=== PATIENT | male | born 1980 | race Caucasian/White ===

== ENCOUNTER 2017-07-14 17:30 | Emergency (ER) | payer OTHER ==
[~2017-07-14] VITALS: Ht 182.9 cm; Wt 120.5 kg
[~2017-07-14 17:30] MED LIST: AMOXICILLIN 8751 TAB PO; BACTRIM DS 8001 TAB PO; CEPHALEXIN500 M1 PO; FORT1000TA PO; GLUCOTROL 5M5 MG/TAB; NO HOME MEDICATIONS; NORCO 325 MG-51 TAB PO; NORCO 325 MG-7.1 TAB PO; SOMA250 MG; XANAX 0.5MG0.5 MG; XANAX0.5 MG PO
[2017-07-14] MEDS ORDERED: FLEXERIL 1010 MG/TAB PO (17:48)
[2017-07-14] MEDS ORDERED: MOBIC15 MG PO (17:48)
[2017-07-14] MEDS ORDERED: AMBIEN 10MG10 MG PO (17:48)
[2017-07-14 18:08] LABS: C-REACTIVE PROTEIN 0.7 mg/dL (0.0-0.9)
[2017-07-14 18:19] LABS: TROPONIN-I < 0.012 ng/mL (0.000-0.034)
[2017-07-14 18:29] LABS: HEMATOCRIT 47.4 % (42.0-52.0); HEMOGLOBIN 16.2 g/dl (13.5-18.0); MEAN CELL VOLUME 89 fl (80.0-100.0); MEAN CORPUSCULAR HEMOGLOBIN 30 pg (27.0-31.0); MEAN CORPUSCULAR HGB CONC 34 g/dl (33.0-37.0); PLATELET COUNT 285 K/mm3 (130-400); RED BLOOD COUNT 5.34 M/mm3 (4.20-5.60); REDCELL DISTRIBUTION WIDTH-CV 12.5 % (11.5-14.5); WHITE BLOOD COUNT 15.4 K/mm3 (4.8-10.8)
[2017-07-14 18:36] LABS: ADJUSTED CALCIUM 9.7 mg/dL (8.4-10.2); ALANINE AMINOTRANSFERASE 217 U/L (21-72); ALBUMIN 5.2 gm/dL (3.5-5.0); ALKALINE PHOSPHATASE 123 U/L (50-136); ANION GAP 18 mmol/L (7-16); BILIRUBIN,TOTAL 1.2 mg/dL (0.0-1.0); BLOOD UREA NITROGEN 17 mg/dL (9-20); CALCIUM 10.7 mg/dL (8.4-10.2); CARBON DIOXIDE 20 mmol/L (22-30); CHLORIDE 103 mmol/L (98-107); CREATININE, serum 1.69 mg/dL (0.66-1.25); GLUCOSE 138 mg/dL (74-106); POTASSIUM 3.7 mmol/L (3.4-5.0); SODIUM 141 mmol/L (137-145); TOTAL PROTEIN 9.2 gm/dL (6.4-8.2)
[2017-07-14 19:40] LABS: BASO # 0.1 (0.0-0.2); BASO % 0.3 % (0.0-2.0); EOS # 0.1 (0.0-0.7); EOS % 0.5 % (0-4.0); GRAN # 11.8 (1.4-6.5); GRAN % 75.3 % (42.2-75.2); HEMATOCRIT 40.6 % (42.0-52.0); LYMPH # 2.5 (1.2-3.4); LYMPH % 16.1 % (20.0-51.0); MEAN CELL VOLUME 90 fl (80.0-100.0); MEAN CORPUSCULAR HEMOGLOBIN 31 pg (27.0-31.0); MEAN CORPUSCULAR HGB CONC 34 g/dl (33.0-37.0); MEAN PLATELET VOLUME 10.4 fl (7.4-10.4); MONO # 1.1 (0.1-0.6); MONO % 7.2 % (1.7-9.3); PLATELET COUNT 217 K/mm3 (130-400); RED BLOOD COUNT 4.49 M/mm3 (4.20-5.60); REDCELL DISTRIBUTION WIDTH-CV 12.6 % (11.5-14.5); WHITE BLOOD COUNT 15.6 K/mm3 (4.8-10.8)
[2017-07-14 19:46] LABS: HEMOGLOBIN 13.7 g/dl (13.5-18.0)
[2017-07-14 19:50] LABS: CREATININE, serum 1.3 mg/dL (0.66-1.25); POTASSIUM 3.9 mmol/L (3.4-5.0)
[2017-07-14 20:00] LABS: TROPONIN-I 0.018 ng/mL (0.000-0.034)
[2017-07-14 20:06] VITALS: BP 118/84; PULSE 86
== END 2017-07-14 20:05 | disposition home or self-care (01) ==
LOC: COL.ER 17:30
PROVIDERS: Family Medicine
DX: E86.0 Dehydration (principal); T67.5XXA Heat exhaustion, unspecified, initial encounter; G89.29 Other chronic pain; M54.2 Cervicalgia; E11.9 Type 2 diabetes mellitus without complications; Z79.84 Long term (current) use of oral hypoglycemic drugs; X30.XXXA Exposure to excessive natural heat, initial encounter
CPT/HCPCS: J2405; J7030